=== PATIENT | female | born 1985 | race Caucasian/White ===

== ENCOUNTER 2019-10-23 18:34 | Emergency (ER) | payer BC ==
[~2019-10-23] VITALS: Ht 172.7 cm; Wt 79.6 kg
[2019-10-23] MEDS: diphenhydrAMINE 50 MG/ML VIAL IVP ONE (18:45)
[2019-10-23] MEDS: methylPREDNISolone SOD SUCC PF 125 MG/2 ML VIAL. IV ONE (18:45)
[2019-10-23] MEDS: IV NORMAL SALINE 1,000ML 1,000 ML IV ONE (18:45)
[2019-10-23] MEDS: FAMOTIDINE 20 MG/2 ML VIAL IVP ONE (18:45)
--- NOTE | 2019-10-23 18:48 | PHYS DOC ---
General Adult EDM: Chief Complaint: ALLERGIC REACTION HPI: HPI: Patient is a 34-year-old female with a severe allergies. She had some allergy shots today approximately 5:30 and after that started developing urticaria shortness of breath. She presented to the emergency department because she was afraid that she would develop anaphylaxis. She states pollen has been typically what causes her the most difficulties. She has not started any new medications however the dose of her allergen injection today was higher than usual.[] Review of Systems: Review of Systems: Constitutional: Denies fever or chills Eyes: Denies change in visual acuity HENT: Denies nasal congestion or sore throat Respiratory: Reports shortness of breath Cardiovascular: Denies chest pain or edema GI: Denies abdominal pain, nausea, vomiting, bloody stools or diarrhea : Denies dysuria Musculoskeletal: Denies back pain or joint pain Integument: Reports Neurologic: Denies headache, focal weakness or sensory changes Endocrine: Denies polyuria or polydipsia Lymphatic: Denies swollen glands Psychiatric: Denies depression or anxiety Heart Score: Risk Factors: Risk Factors: DM, Current or recent (<one month) smoker, HTN, HLP, family history of CAD, obesity. Risk Scores: Score 0 - 3: 2.5% MACE over next 6 weeks - Discharge Home Score 4 - 6: 20.3% MACE over next 6 weeks - Admit for Clinical Observation Score 7 - 10: 72.7% MACE over next 6 weeks - Early Invasive Strategies Current Medications: Current Meds: Current Medications Medications (Trade) Dose Ordered Sig/Yu Start Time Stop Time Status Last Admin Dose Admin Diphenhydramine HCl (Benadryl) 50 mg 1X ONCE 10/23/19 18:45 10/23/19 18:46 UNV Famotidine (Pepcid Vial) 20 mg 1X ONCE 10/23/19 18:45 10/23/19 18:46 UNV Methylprednisolone Sodium Succinate (SOLU-Medrol 125MG VIAL) 125 mg 1X ONCE 10/23/19 18:45 10/23/19 18:46 UNV Sodium Chloride 1,000 ml @ 1,000 mls/hr 1X ONCE 10/23/19 18:45 10/23/19 19:44 UNV Physical Exam: PE: Constitutional: Well developed, well nourished, mild to moderate distress, non- toxic appearance. [] HENT: Normocephalic, atraumatic, bilateral external ears normal, oropharynx moist, no oral exudates, nose normal, no tongue. [] Eyes: PERRLA, EOMI, conjunctiva normal, no discharge. [] Neck: Normal range of motion, no tenderness, supple, no stridor. [] Cardiovascular:Heart rate regular rhythm, no murmur [] Lungs & Thorax: Bilateral breath sounds clear to auscultation, no wheezing [] Abdomen: Bowel sounds normal, soft, no tenderness, no masses, no pulsatile masses. [] Skin: Generalized urticaria[] Back: No tenderness, no CVA tenderness. [] Extremities: No tenderness, no cyanosis, no clubbing, ROM intact, no edema. [] Neurologic: Alert and oriented X 3, normal motor function, normal sensory function, no focal deficits noted. [] Psychologic: Extremely anxious. [] Current Patient Data: Vital Signs: Vital Signs Date Time Temp Pulse Resp B/P (MAP) Pulse Ox O2 Delivery O2 Flow Rate FiO2 10/23/19 18:40 98.4 116 20 159/109 (126) 100 Room Air EKG: EKG: [] Radiology/Procedures: Radiology/Procedures: [] Course & Med Decision Making: Course & Med Decision Making Pertinent Labs and Imaging studies reviewed. (See chart for details) [ED course: Evaluation reveals a 34-year-old female with acute allergic reaction. She was given Solu-Medrol 125 mg, Benadryl 50 mg IV and Pepcid 20 mg IV she was also given 1 albuterol neb. After approximately an hour her symptoms have completely resolved and she is ready go home. I'll start her on an H2 stef as well as prednisone at home. She also understands that she can take Benadryl as needed at home.] Dragon Disclaimer: Dragmp Disclaimer: This electronic medical record was generated, in whole or in part, using a voice recognition dictation system. Departure Departure: Impression: Primary Impression: Allergic reaction to allergy skin test Disposition: HOME, SELF-CARE Condition: IMPROVED Referrals: TIMA SCOTT (PCP) Patient Instructions: Allergy Skin Testing, Hives Scripts Ranitidine Hcl (ZANTAC) 150 Mg Tablet 1 TAB PO BID for allergic reaction for 15 Days, #30 TAB 0 Refills Prov: DEDRA HATCH DO 10/23/19 Epinephrine (EPIPEN 2-AUDREY) 0.3 Mg/0.3 Ml Auto.injct 1 SYR IM ONCE for allergic reaction for 1 Day, #1 PACKET 0 Refills Prov: DEDRA HATCH DO 10/23/19 Prednisone (PREDNISONE) 20 Mg Tablet 20 TAB PO TID for Bronchitis for 7 Days, #420 TAB Prov: DEDRA HATCH DO 10/23/19 DEDRA HATCH DO Oct 23, 2019 18:48
[2019-10-23] MEDS ORDERED: IPRATRPIUM/ALBUTEROL 0.5/2.5MG 3 ML NEBU. ONE (19:26)
[2019-10-23 19:48] VITALS: BP 123/94
[2019-10-23] MEDS ORDERED: RANI-376 PO (20:22)
[2019-10-23] MEDS ORDERED: EPIN0.3A4 IM (20:22)
[2019-10-23] MEDS ORDERED: PRED20TA PO (20:22)
== END 2019-10-23 20:25 | disposition home or self-care (01) ==
LOC: ER 18:34
DX: T78.49XA Other allergy, initial encounter (principal); X58.XXXA Exposure to other specified factors, initial encounter
CPT/HCPCS: 96374; 96375; 99284; J1200; J2930; J3490; J7030

== ENCOUNTER → 2021-06-02 | Outpatient (CLI) | payer OTHER, BC ==
[~2021-06-02] MED LIST: EPIN0.3A4 IM; PRED20TA PO; RANI-376 PO
--- NOTE | 2021-06-02 08:22 | RAD ---
XR ELBOW_LEFT DATE: 06/02/2021 7:56 AM INDICATION: LEFT ELBOW PAIN COMPARISON: None. FINDINGS: Bones: There is no evidence of acute fracture or dislocation. Joints: The joint spaces are normal. There is no joint effusion. Miscellaneous: None. IMPRESSION: No evidence of acute fracture. Electronically signed by: Rolando Bran MD (06/02/2021 8:20 AM) [id number]
== END ==
LOC: RAD 07:48
PROVIDERS: ATTEND Nurse Practitioner Family
DX: M70.32 Other bursitis of elbow, left elbow (principal)
CPT/HCPCS: 73070